=== PATIENT | female | born 1945 | race Two or more races ===

== ENCOUNTER 2016-12-30 16:36 | Emergency (ER) | payer MEDICARE, BC ==
[~2016-12-30] VITALS: Ht 162.6 cm; Wt 55.8 kg
[2016-12-30] MEDS ORDERED: TOPI25TA49 PO (17:02)
[2016-12-30] MEDS ORDERED: PRIMIDONE 250 MG TABLET PO (17:02)
[2016-12-30] MEDS ORDERED: LEVO88TA5 PO (17:02)
[2016-12-30] MEDS ORDERED: PROP60CA2 PO (17:02)
[2016-12-30] MEDS ORDERED: CLON0.5T4 PO (17:02)
[2016-12-30] MEDS ORDERED: BENA20TA2 PO (17:02)
[2016-12-30] MEDS ORDERED: LEVOFLOXACIN 500 MG TABLET PO ONE (18:15)
--- NOTE | 2016-12-30 18:36 | NUR ---
Patient discharged to home in stable conditon. Written and verbal after care instructions given. Patient verbalizes understanding of instructions. Stressed follow up with pmd or return to ER for worsening s/s.
[2016-12-30] MEDS ORDERED: LEVOFLOXACIN 500 MG TABLET ONE (18:38)
== END 2016-12-30 18:39 | disposition home or self-care (01) ==
LOC: ER 16:36
DX: J18.9 Pneumonia, unspecified organism (principal); E03.9 Hypothyroidism, unspecified
CPT/HCPCS: 71010; 87400; 99285; A4663

== ENCOUNTER 2017-08-17 23:03 | Emergency (ER) | payer MEDICARE, BC ==
[~2017-08-17] VITALS: Ht 157.5 cm; Wt 56.7 kg
[~2017-08-17 23:03] MED LIST: BENA20TA2 PO; CLON0.5T4 PO; LEVO88TA5 PO; PRIMIDONE 250 MG TABLET PO; PROP60CA2 PO; TOPI25TA49 PO
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
--- NOTE | 2017-08-17 23:03 | NUR ---
Dr. Benitez at bedside for MSE.
[2017-08-17] MEDS ORDERED: TDAP DIPH,PERTUSS,TET VAC/PF 0.5 ML DISP.SYRIN IM ONE ×2 (23:10→23:15)
[2017-08-17] MEDS ORDERED: CEPHALEXIN MONOHYDRATE 500 MG CAPSULE PO ONE (23:15)
[2017-08-17] MEDS ORDERED: SODIUM BICARBONATE 4.2 % (NEUT) 5 ML VIAL TP ONE (23:15)
[2017-08-17] MEDS ORDERED: LIDOCAINE 1%-EPI 1:100,000 20 ML VIAL TP ONE (23:15)
[2017-08-17] MEDS ORDERED: CEPHALEXIN MONOHYDRATE 500 MG CAPSULE ONE (23:24)
[2017-08-17] MEDS ORDERED: HYDROCODONE/APAP 5-325MG TABLET ONE (23:25)
[2017-08-17] MEDS ORDERED: ONDANSETRON ODT 4 MG TAB.RAPDIS SL ONE (23:30)
[2017-08-17] MEDS ORDERED: HYDROCODONE/APAP 5-325MG TABLET PO ONE (23:30)
[2017-08-17] MEDS ORDERED: ONDANSETRON ODT 4 MG TAB.RAPDIS ONE (23:31)
--- NOTE | 2017-08-17 23:33 | NUR ---
Pt out of ER for CT.
--- NOTE | 2017-08-17 23:47 | NUR ---
Pt back to ER from CT.
--- NOTE | 2017-08-17 23:50 | NUR ---
[employer] at bedside taking pt testimony.
--- NOTE | 2017-08-18 00:40 | NUR ---
Patient discharged to home in stable conditon. Written and verbal after care instructions given. Patient verbalizes understanding of instructions. Patient discharged out of ER on wheelchair, accompanied to car, VSS, all belongings taken.
[2017-08-18 00:57] VITALS: BP 133/78
== END 2017-08-18 00:40 | disposition home or self-care (01) ==
LOC: ER 23:07
DX: S01.01XA Laceration without foreign body of scalp, initial encounter (principal); S60.221A Contusion of right hand, initial encounter; S50.01XA Contusion of right elbow, initial encounter; E03.9 Hypothyroidism, unspecified; E78.00 Pure hypercholesterolemia, unspecified; I10 Essential (primary) hypertension; Z79.899 Other long term (current) drug therapy; Y04.0XXA Assault by unarmed brawl or fight, initial encounter; Y93.89 Activity, other specified; Y92.89 Other specified places as the place of occurrence of the external cause; Y99.8 Other external cause status
CPT/HCPCS: 70450; 73080; 73130; 90715; A4217; A4663; J3490; L8699; Q0162

== ENCOUNTER 2018-07-27 16:45 | Emergency (ER) | payer MEDICARE, BC ==
[~2018-07-27] VITALS: Ht 162.6 cm; Wt 59.0 kg
[~2018-07-27 16:45] MED LIST changes: -BENA20TA2 PO; +BENA20TA9 PO; +CLON0.5T12 PO; -CLON0.5T4 PO
[2018-07-27] MEDS ORDERED: DIAZEPAM 2 MG TABLET PO ONE (17:30)
[2018-07-27] MEDS ORDERED: KETOROLAC TROMETHAMINE 30 MG INJ IM ONE (17:30)
[2018-07-27] MEDS ORDERED: DIAZEPAM 5 MG TABLET ONE (17:32)
[2018-07-27] MEDS ORDERED: KETOROLAC TROMETHAMINE 30 MG INJ ONE (17:32)
--- NOTE | 2018-07-27 18:51 | NUR ---
Patient discharged to home in stable conditon. Written and verbal after care instructions given. Patient verbalizes understanding of instructions. Walked out of ER with no distress noted
[2018-07-27 18:52] VITALS: BP 132/75
== END 2018-07-27 18:53 | disposition home or self-care (01) ==
LOC: ER 16:45
DX: M54.2 Cervicalgia (principal); E03.9 Hypothyroidism, unspecified; Z79.899 Other long term (current) drug therapy
CPT/HCPCS: 72125; 96372; 99284; J1885; A4663

== ENCOUNTER 2018-12-30 21:29 | Emergency (ER) | payer MEDICARE, BC ==
[~2018-12-30] VITALS: Ht 160 cm; Wt 79.8 kg
[~2018-12-30 21:29] MED LIST changes: -CLON0.5T12 PO; +CLON0.5T4 PO
--- NOTE | 2018-12-30 21:57 | NUR ---
patient came from home and stated that she tripped on their driveway and his her lower jaw
--- NOTE | 2018-12-30 22:00 | NUR ---
Dr. Plascencia at bedside
--- NOTE | 2018-12-30 22:09 | NUR ---
x-ray surveillance technician at bedside
--- NOTE | 2018-12-30 22:15 | NUR ---
patient being taken down for CT with [employer] system support technician
--- NOTE | 2018-12-30 22:29 | NUR ---
patient brought back from CT
--- NOTE | 2018-12-30 23:05 | NUR ---
Patient discharged to home in stable conditon. Written and verbal after care instructions given. Patient verbalizes understanding of instructions. patient escorted and assisted outside the department via gurney. Patient alert and oriented x4. Patient in stable condition. Exit care package and personal belongings taken with the patient. daughter at bedside and consent to driving the patient home. patient VSS
[2018-12-30 23:07] VITALS: BP 162/95
== END 2018-12-30 23:08 | disposition home or self-care (01) ==
LOC: ER 21:29
DX: S00.83XA Contusion of other part of head, initial encounter (principal); M79.642 Pain in left hand; F32.9 Major depressive disorder, single episode, unspecified; F41.9 Anxiety disorder, unspecified; E03.9 Hypothyroidism, unspecified; Z79.899 Other long term (current) drug therapy; W10.9XXA Fall (on) (from) unspecified stairs and steps, initial encounter; Y93.89 Activity, other specified; Y92.89 Other specified places as the place of occurrence of the external cause; Y99.8 Other external cause status
CPT/HCPCS: 70486; 73130; A4663